=== PATIENT | female | born 1945 | race Caucasian/White ===

== ENCOUNTER → 2019-12-16 17:44 | Outpatient (CLI) | payer MEDICARE, SELFPAY ==
--- NOTE | 2019-12-16 17:46 | CT_ITS ---
STUDY: CT ABDOMEN AND PELVIS WITH AND WITHOUT CONTRAST REASON FOR EXAM: Female, 74 years old. UTI''S AND HYDRONEPHROSIS RADIATION DOSAGE (If Supplied By Facility): CTDIvol = ( 11.41 ) mGy, DLP = ( 1714.28 ) mGycm TECHNIQUE: Transaxial images were obtained from the dome of the diaphragm to the symphysis pubis without oral contrast. IV 100mL Isovue-[id number] was administered. Sagittal and coronal images were reconstructed. Individualized dose optimization techniques were used for this CT. COMPARISON: None. FINDINGS: Mild fibrotic changes in the lung bases Normal liver. There is non-visualization of the gallbladder, which may be secondary to either contraction or a prior cholecystectomy. Normal spleen. Normal pancreas. Normal bilateral adrenal glands. Normal right kidney. Normal left kidney. Incidental bilateral extrarenal pelves. Evaluation of the GI tract is limited by absence of oral contrast. Cannot exclude stomach wall thickening. No dilated loops of bowel or evidence for obstruction. Cannot exclude segmental thickening of the locke of the small or large bowel. Cannot exclude enteritis or colitis. Marked diffuse fecal retention. Diverticulosis without definite diverticulitis. Appendix is not definitely seen. Normal abdominal aorta. Normal inferior vena cava. Normal retroperitoneum. Normal urinary bladder. There is absence of the uterus consistent with a prior hysterectomy. Normal abdominal wall. There are diffuse degenerative changes of the visualized lumbar spine. Mild dextroconvex scoliosis. CT/CT Abd/Pelvis W/WO Contrast IMPRESSION: No definite acute or significant abnormality seen. Electronically Signed: Thom Adames MD at 19:00 EDT , Service support ,
[2019-12-16 18:00] LABS: CREATININE FINGERSTICK 0.9 mg/dL (0.55-1.02); EGFR FINGERSTICK > 60.0000 mL/min (>60)
== END ==
PROVIDERS: PCP Internal Medicine; Referring Provider Urology; Visit Provider Urology
DX: N13.30 Unspecified hydronephrosis (principal); N39.0 Urinary tract infection, site not specified
CPT/HCPCS: 74178; Q9967